=== PATIENT | female | born 2000 | race Caucasian/White ===

== ENCOUNTER → 2020-09-24 | Outpatient (CLI) | payer OTHER ==
[2020-09-24 14:26] LABS: BASOPHILS ABSOLUTE AUTO 0.04 K/mm3 (0.00-0.23); BASOPHILS PERCENT AUTO 1 % (0-2); EOSINOPHILS ABSOLUTE AUTO 0.07 K/mm3 (0.00-0.68); EOSINOPHILS PERCENT AUTO 1 % (0-6); Hematocrit 37.7 % (33.0-51.0); Hemoglobin 13.2 g/dL (11.5-16.0); IMMATURE GRAN ABSOLUTE AUTO 0.03 K/mm3 (0.00-0.10); IMMATURE GRAN PERCENT AUTO 0 % (0-1); LYMPHOCYTES ABSOLUTE AUTO 2.98 K/mm3 (0.84-5.20); LYMPHOCYTES PERCENT AUTO 40 % (21-46); MONOCYTES ABSOLUTE AUTO 0.45 K/mm3 (0.16-1.47); MONOCYTES PERCENT AUTO 6 % (4-13); Mean Corpuscular HGB 31.5 pg (26.0-34.0); Mean Corpuscular Volume 90 fL (80-100); Mean Platelet Volume 10.3 fL (9.1-12.4); NEUTROPHILS ABSOLUTE AUTO 3.89 K/mm3 (1.96-9.15); NEUTROPHILS PERCENT AUTO 52 % (41-73); Platelet Count 316 K/mm3 (150-400); RDW Coefficient Variation 11.7 % (11.7-14.2); Red Blood Cell Count 4.19 M/mm3 (3.80-5.20); White Blood Cell Count 7.46 K/mm3 (4.00-11.30)
== END | disposition home or self-care (01) ==
LOC: LAB 14:20 → LAB EV 14:20 → LAB SHORT 14:20
PROVIDERS: Physician Assistant Surgical
DX: Z09 Encounter for follow-up examination after completed treatment for conditions other than malignant neoplasm (principal); Z86.2 Personal history of diseases of the blood and blood-forming organs and certain disorders involving the immune mechanism
CPT/HCPCS: 85025

== ENCOUNTER → 2020-12-03 | Outpatient (CLI) | payer OTHER | END | disposition home or self-care (01) | LOC: LAB 17:27 → LAB SHORT 17:27 | DX: N39.0 Urinary tract infection, site not specified (principal) | CPT/HCPCS: 87086 ==

== ENCOUNTER 2020-12-17 08:44 | Day surgery (SDC) | payer OTHER ==
--- NOTE | 2020-12-17 10:11 | NUR ---
PT STARTED GETTING PALE WITH AND SWEATY. BP 69/32, BIOX 100%, 61 PULSE, 97.3. WAITED 5 MINUTES AND RECHECKED BP AND IT WAS UP TO 87/48 AND PT STATED WHE WAS STARTING TO FEEL BETTER.
[2020-12-17] MEDS ORDERED: BUSP5 PO (10:29)
[2020-12-17] MEDS ORDERED: Atarax10 MG PO (10:31)
[2020-12-17] MEDS ORDERED: MECL25 PO (10:31)
--- NOTE | 2020-12-17 11:32 | NUR ---
BLOOD DRAWN FROM IV SITE. 5CC OF BLOOD DISCARDED AND 4CC FOR LABS.
== END 2020-12-17 11:54 | disposition home or self-care (01) ==
LOC: ATC 08:44
DX: I95.1 Orthostatic hypotension (principal); R00.2 Palpitations; R42 Dizziness and giddiness; R06.02 Shortness of breath; Z79.52 Long term (current) use of systemic steroids; Z79.899 Other long term (current) drug therapy
CPT/HCPCS: 36415; 80400; 82533; 96372; J0834

== ENCOUNTER → 2021-06-30 | Outpatient (CLI) | payer OTHER ==
[~2021-06-30] MED LIST: Atarax10 MG PO; BUSP5 PO; MECL25 PO
== END | disposition home or self-care (01) ==
LOC: LAB 14:36 → LAB SHORT 14:36
PROVIDERS: Obstetrics & Gynecology
DX: Z34.01 Encounter for supervision of normal first pregnancy, first trimester (principal)
CPT/HCPCS: G0123

== ENCOUNTER 2022-01-01 21:41 | Emergency (ER) | payer OTHER ==
[~2022-01-01] VITALS: Ht 162.6 cm; Wt 66.7 kg
[2022-01-01 22:15] LABS: Source, Urine Voided
[2022-01-01 22:17] LABS: BASOPHILS ABSOLUTE AUTO 0.04 K/mm3 (0.00-0.23); BASOPHILS PERCENT AUTO 0 % (0-2); EOSINOPHILS PERCENT AUTO 2 % (0-6); Hematocrit 40.1 % (33.0-51.0); IMMATURE GRAN ABSOLUTE AUTO 0.03 K/mm3 (0.00-0.10); IMMATURE GRAN PERCENT AUTO 0 % (0-1); LYMPHOCYTES ABSOLUTE AUTO 3.34 K/mm3 (0.84-5.20); LYMPHOCYTES PERCENT AUTO 35 % (21-46); MONOCYTES ABSOLUTE AUTO 0.59 K/mm3 (0.16-1.47); MONOCYTES PERCENT AUTO 6 % (4-13); Mean Corpuscular HGB 31.6 pg (26.0-34.0); Mean Corpuscular HGB Conc 34.9 g/dL (31.5-36.5); Mean Corpuscular Volume 91 fL (80-100); Mean Platelet Volume 10.9 fL (9.1-12.4); NEUTROPHILS ABSOLUTE AUTO 5.31 K/mm3 (1.96-9.15); NEUTROPHILS PERCENT AUTO 56 % (41-73); Platelet Count 387 K/mm3 (150-400); RDW Coefficient Variation 11.6 % (11.7-14.2); RDW Standard Deviation 38.7 fL (35.1-46.3); Red Blood Cell Count 4.43 M/mm3 (3.80-5.20); White Blood Cell Count 9.51 K/mm3 (4.00-11.30)
[2022-01-01 22:26] LABS: Bilirubin, Urine Neg (Neg); Blood, Urine 4+ (Neg); Glucose Qualitative, Urine Neg (Neg); Ketones, Urine Neg (Neg); Leukocyte Esterase, Urine 1+ (Neg); Nitrite, Urine Neg (Neg); Protein, Urine 1+ (Neg); Urobilinogen, Urine 1+ (Normal)
[2022-01-01 22:27] LABS: Appearance, Urine Clear (Clear); Color, Urine Yellow (P-Yellow)
[2022-01-01 22:37] LABS: Albumin, Blood 3.9 g/dL (3.4-5.0); Albumin/Globulin Ratio 1.1 (0.8-1.8); Bilirubin, Total 0.7 mg/dL (0.1-1.0); Bun/Creatinine Ratio 12.9 (12.0-20.0); Calcium, Blood 8.9 mg/dL (8.5-10.1); Creatinine, Blood 0.78 mg/dL (0.40-1.00); Globulin, Blood 3.7 g/dL (2.2-4.0); Potassium, Blood 3.7 mmol/L (3.5-5.5); Total Protein, Blood 7.6 g/dL (6.4-8.2)
[2022-01-01 22:52] LABS: Amorphous Light (0-Heavy); Bacteria Rare /hpf; Mucus Light (0-Heavy); Squamous Epithelial Cells Not Seen /hpf (Few)
== END 2022-01-02 01:34 | disposition home or self-care (01) ==
LOC: ER 21:41
PROVIDERS: Student in an Organized Health Care Education/Training Program
DX: R10.32 Left lower quadrant pain (principal); Z98.890 Other specified postprocedural states; Z79.899 Other long term (current) drug therapy
CPT/HCPCS: 36415; 76856; 80053; 81001; 85025

== ENCOUNTER 2022-11-04 21:57 | Emergency (ER) | payer BC, OTHER ==
[~2022-11-04] VITALS: Ht 162.6 cm; Wt 65.8 kg
[2022-11-04 22:01] VITALS: BP 132/70
== END 2022-11-04 22:17 | disposition home or self-care (01) ==
LOC: ER 21:57
DX: O99.891 Other specified diseases and conditions complicating pregnancy (principal); M77.8 Other enthesopathies, not elsewhere classified; Z3A.23 23 weeks gestation of pregnancy
CPT/HCPCS: 99283

== ENCOUNTER → 2024-04-09 | Outpatient (CLI) | payer OTHER | END | disposition home or self-care (01) | LOC: LAB SHORT 09:46 → LAB 09:46 | PROVIDERS: Advanced Practice Midwife | DX: Z01.419 Encounter for gynecological examination (general) (routine) without abnormal findings (principal) | CPT/HCPCS: G0123 ==

== ENCOUNTER → 2024-12-05 | Outpatient (CLI) | payer OTHER ==
[2024-12-05 13:49] LABS: Source, Urine Clean Catch
[2024-12-05 15:45] LABS: Red Blood Cells, Urine 0-2 /hpf (0-2)
[2024-12-05 15:52] LABS: U Amphetamine Screen Not Detected; U Barbiturate Screen Not Detected; U Benzodiazapine Screen Not Detected; U Buprenorphine Screen Not Detected; U Cannabinoids Screen Not Detected; U Cocaine Screen Not Detected; U Methadone Screen Not Detected; U Methamphetamine Screen Not Detected; U Opiates Screen Not Detected; U Oxycodone Screen Not Detected; U Phencyclidine Screen Not Detected
== END ==
LOC: LAB SHORT 13:47 → LAB 13:47
PROVIDERS: Advanced Practice Midwife
DX: Z34.81 Encounter for supervision of other normal pregnancy, first trimester (principal)
CPT/HCPCS: 81015; 87086